=== PATIENT | female | born 1955 | race Caucasian/White ===

== ENCOUNTER → 2020-06-26 16:00 | Outpatient (BNVA) | payer SELFPAY | PROVIDERS: Visit Provider Nurse Practitioner Family | DX: Z20.828 Contact with and (suspected) exposure to other viral communicable diseases (principal); J44.1 Chronic obstructive pulmonary disease with (acute) exacerbation | CPT/HCPCS: 87635 ==

== ENCOUNTER 2021-12-25 08:45 | Emergency (ER) | payer MEDICARE, SELFPAY ==
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
[2021-12-25 08:58] LABS: ABG PCO2 34.3 mmHg (35-45); ABG PH Result 7.43 (7.35-7.45); Alveolar-Arterial Oxygen Gradi 4.8 mmHg (5-10); Arterial Blood Gas Hematocrit 38.3 % (37-47); Base Excess ABG -1.4 mmol/L (-2.0-2.0); Blood Gas Allen Test Pos; Blood Gas Operator Identificat CAK; Blood Gas Sample Site Radial, left; Blood Gas Sample Type Arterial; Carboxyhemoglobin 5.6 %THgb (0.4-20.1); HCO3 ABG 22.5 mmol/L (22-26); Ionized Calcium Level - ABG 1.2 mmol/L (1.1-1.4); Methemoglobin 0.9 % (0.4-1.5); Oxygen Device ROOM AIR; Oxygen Saturation ABG 96.3; PO2 ABG 70.4 mmHg (80.0-100.0); Total Hemoglobin 12.5 g/dL (12-16)
[2021-12-25 09:10] VITALS: BP 150/82; PULSE 78; RESP 20; O2SAT 100; BMI 19.2
[2021-12-25 09:25] LABS: Basophils % 0.6 %; Eosinophils # 0.1 10^3/uL (0.0-0.8); Eosinophils % 1.9 %; Hematocrit 35.6 % (37.0-47.0); Hemoglobin 12.9 g/dL (11.5-15.3); Lymphocytes # 2.3 10^3/uL (0.8-4.8); Lymphocytes % 32.1 %; Mean Corpuscular HGB Conc 36.2 g/dL (30.0-36.0); Mean Corpuscular Hemoglobin 33.9 pg (28.0-34.0); Mean Corpuscular Volume 93.4 fl (81-99); Mean Platelet Volume 9.2 fL (7.4-10.4); Monocytes # 0.4 10^3/uL (0.2-0.9); Monocytes % 5.2 %; Neutrophils # 4.34 10^3/uL (1.8-7.7); Neutrophils % 59.9 %; Nucleated Red Blood Cells % 0 %; Platelet Count 298 10^3/cmm (130-400); Red Blood Count 3.81 10^6/uL (4.1-5.3); Red Cell Distribution Width 13.2 % (12.1-15.1); White Blood Count 7.3 10^3/uL (4.0-10.0)
[2021-12-25 09:47] LABS: Alanine Aminotransferase 16 U/L (0-33); Albumin Level 4.4 g/dL (3.5-5.2); Alkaline Phosphatase 61 IU/L (35-105); Anion Gap 13.6 (5-19); Aspartate Amino Transferase 20 U/L (0-32); Blood Urea Nitrogen 14 mg/dL (8-23); Calcium 9.3 mg/dL (8.5-10.5); Carbon Dioxide 24 mmol/L (22-29); Chloride 101 mmol/L (98-107); Creatinine Clr Calc Pharmacy 53.6297; Globulin 2.9 g/dL (1.3-4.6); Glomerular Filtration Rate 83.7 mL/min (90-130); Glucose 89 mg/dL (65-115); Osmolality Calculated 278 mOsm/kg (285-295); Potassium 4.6 mmol/L (3.5-5.1); Sodium 134 mmol/L (136-145); Total Bilirubin 0.3 mg/dL (0.15-1.2); Total Protein 7.3 g/dL (6.6-8.7)
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
[2021-12-25 10:23] VITALS: PULSE 90; RESP 16; O2SAT 94
[2021-12-25] MEDS: ipratropium-albuterol 3 mL Neb INHALATION (10:23)
[2021-12-25 10:24] VITALS: PULSE 90
[2021-12-25 11:26] VITALS: BP 147/93; PULSE 79; RESP 20; O2SAT 97
--- NOTE | 2021-12-25 11:40 | PC.CHAP ---
Pastoral Care Encounter/Spiritual Assessment Type of Contact [] Declined deicer element winder machine visit [] Patient/Family/Request visit [] Outpatient visit [] Follow-up visit [] Physician referral [] Code/Alert [] Routine visit [] Staff referral [] Actively dying [] Patient sleeping [] Family support [] [] Out of room [] Palliative care [] [] Receiving care in room [] Pre-surgical visit [X] Trauma [] Long length of stay [] ICU visit [] Other:ER Relational/Emotional Strength [x] Patient feels connected with others/family/visitors/staff [] Distress [] Loneliness/isolation [] Abandonment Spirituality of Patient [] Person of Kylie [] Attends Latter Day of their Kylie [x] Believes in Prayer [] Reads Bible or Voodoo materials [] There are Spiritual issues to be addressed Drivability Technician Interventions [] Prayer [] Active listening [] Non-anxious presence [] Spiritual/emotional support [x] Crisis/trauma care [] Spiritual counseling [] Bereavement support [] Provided bereavement packet [] Provided Bible/devotional materials [] Provided toy/stuffed animal, coloring book to patient or family member [] Provided Communion [] Anointing/[place] [] Salvation [] Completed spiritual assessment [] Other: Impact on Illness or Injury [] Angry [] Fearful [] Anxious [] Often cries [] Exhaustion [] Unable to work [] Unable to attend anglican [] Unable to walk/stand [] Unable to read [] Unable to drive [] Unable to eat/drink [] Unable to sleep [] Unable to be with family [] Patient intubated [] Other: Summary Drivability Technician called to ED to be with patient. Worried about her son and as well as her dogs and cats. deicer element winder machine was able to calm patient somewhat and sat with her in ER. Drivability Technician was able to get clothing for patient from [employer] store. Local life science research assistant tryinjg to reach patients children who do not live in area. Time spent with patient 2 hours
== END 2021-12-25 11:27 | disposition home or self-care (01) ==
PROVIDERS: Internal Medicine; Emergency Provider Family Medicine
DX: T59.811A Toxic effect of smoke, accidental (unintentional), initial encounter (principal); J44.9 Chronic obstructive pulmonary disease, unspecified; F17.200 Nicotine dependence, unspecified, uncomplicated
CPT/HCPCS: 71045; 80051; 80053; 82330; 82805; 85025; 94640; 96374; 99284; J2930

== ENCOUNTER 2022-06-07 12:58 | Emergency (ER) | payer MEDICARE, MEDICAID, SELFPAY ==
--- NOTE | 2022-06-07 13:16 | XR_ITS ---
WS: [id number] XR chest 1V portable [id number] REASON FOR EXAM: sob FINDINGS: The thoracic aorta is unremarkable. The heart and mediastinum are within normal limits. There is calcified granulomatous disease bilaterally. Compared to the previous examination of 12/25/2021 there appears to be a nodule projecting just latera l to the left hilum. This lesion is not identified on the previous study. (An unusually short time to develop a pulmonary nodule unless possibly metastatic disease). No other interval change suggesting acute pulmonary parenchymal or pleural abnormality is identified. Mild degenerative spondylosis in the mid and lower thoracic spine. XR/XR chest 1V portable [id number] IMPRESSION: No etiology for shortness of breath identified. Possibly interval development o f a left lung nodule as above. Recommend follow-up PA and lateral chest. If the nodule is again identified the patient will likely need a CT of the chest.
[2022-06-07 13:28] VITALS: BP 158/81; PULSE 80; RESP 18; TEMP 36.7; O2SAT 98
--- NOTE | 2022-06-07 13:38 | ECG_ITS ---
[facility] Test Date: 2022-06-07 Pat Name: Ruby Pelletier Department: Room: Gender: Female Assistant Spa Manager: : 1955 Requested By: Jermaine Valerio Order Number: [id number] Elyse MD: Rosy Monroe M.D. Measurements Intervals [place] Rate: 83 P: 76 CO: 124 QRS: 93 QRSD: 85 T: 70 QT: 341 QTc: 402 Interpretive Statements SINUS RHYTHM BORDERLINE RIGHT AXIS DEVIATION [QRS AXIS > 90] No previous ECG available for comparison Electronically Signed On 06-07-2022 14:52:28 ORTHOPEDIC ASSISTANT by Rosy Monroe M.D. [email or web address] mercy [email or web address]/store/[id number] f
[2022-06-07 13:56] LABS: Basophils % 0.1 %; Hematocrit 38.3 % (37.0-47.0); Hemoglobin 12.6 g/dL (11.5-15.3); Lymphocytes # 0.5 10^3/uL (0.8-4.8); Lymphocytes % 6.1 %; Mean Corpuscular HGB Conc 32.9 g/dL (30.0-36.0); Mean Corpuscular Hemoglobin 33.6 pg (28.0-34.0); Mean Corpuscular Volume 102.1 fl (81-99); Mean Platelet Volume 8.7 fL (7.4-10.4); Monocytes # 0.7 10^3/uL (0.2-0.9); Monocytes % 8.4 %; Neutrophils # 7.07 10^3/uL (1.8-7.7); Nucleated Red Blood Cells % 0 %; Platelet Count 340 10^3/cmm (130-400); Red Blood Count 3.75 10^6/uL (4.1-5.3); White Blood Count 8.3 10^3/uL (4.0-10.0)
[2022-06-07 14:29] LABS: Troponin(5th) Baseline 11 ng/L (0-10)
[2022-06-07 14:36] LABS: Alanine Aminotransferase 25 U/L (0-33); Albumin Level 4.3 g/dL (3.5-5.2); Alkaline Phosphatase 63 U/L (35-105); Anion Gap 14.5 (5-19); Aspartate Amino Transferase 24 U/L (0-32); Blood Urea Nitrogen 15 mg/dL (8-23); Calcium 9.6 mg/dL (8.5-10.5); Carbon Dioxide 28 mmol/L (22-29); Chloride 97 mmol/L (98-107); Creatinine Clr Calc Pharmacy 51.2521; Glucose 107 mg/dL (65-115); NT Pro B Type Natriuretic Pept 166 pg/mL (0-125); Osmolality Calculated 281 mOsm/kg (285-295); Potassium 4.5 mmol/L (3.5-5.1); Sodium 135 mmol/L (136-145); Total Bilirubin 0.2 mg/dL (0.15-1.2); Total Protein 7.3 g/dL (6.6-8.7)
--- NOTE | 2022-06-07 15:16 | ECG_ITS ---
[facility] Test Date: 2022-06-07 Pat Name: Ruby Pelletier Department: Room: Gender: Female Scientific Research Associate: : 1955 Requested By: José Gomez Order Number: [id number] Reading MD: Rosy Monroe M.D. Measurements Intervals [place] Rate: 80 P: 77 OR: 130 QRS: 91 QRSD: 83 T: 79 QT: 340 QTc: 393 Interpretive Statements SINUS RHYTHM BORDERLINE RIGHT AXIS DEVIATION [QRS AXIS > 90] Compared to ECG 06/07/2022 13:35:25 No significant changes Electronically Signed On 06-08-2022 0:14:16 ADMINISTRATIVE SUPPORT CLERK by Rosy Monroe M.D. [id number]
[2022-06-07 16:24] LABS: Troponin 5 2HR 11.32 ng/L (0-10)
[2022-06-07 16:27] LABS: Troponin 5 2HR Delta 0.32 ABS# (0-10)
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
[2022-06-07 17:26] VITALS: PULSE 89; RESP 22; O2SAT 95
[2022-06-07] MEDS: ipratropium-albuterol 3 mL Neb INHALATION (17:26)
[2022-06-07 17:27] VITALS: PULSE 91; RESP 18; O2SAT 95
[2022-06-07 17:37] VITALS: PULSE 91; RESP 18; O2SAT 97
--- NOTE | 2022-06-07 18:36 | PC.NURSE ---
When discharging the patient, she was unhappy with the care that this ER provided. She was unhappy about the wait time, only having one breathing treatment, and was not given a new script for antibiotics even if clinical the patient required none.
== END 2022-06-07 18:35 | disposition home or self-care (01) ==
PROVIDERS: Emergency Medicine; Emergency Provider Family Medicine
DX: J44.1 Chronic obstructive pulmonary disease with (acute) exacerbation (principal)
CPT/HCPCS: 36415; 71045; 80053; 83880; 84484; 85025; 93005; 94640; 99285

== ENCOUNTER 2022-06-09 10:45 | Emergency (ER) | payer MEDICARE, MEDICAID, SELFPAY ==
[2022-06-09 10:58] VITALS: BP 116/72; PULSE 83; RESP 16; TEMP 36.4; O2SAT 97; BMI 16.9
[2022-06-09 11:27] VITALS: BP 145/83; PULSE 90; RESP 16; O2SAT 98
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
[2022-06-09 13:05] VITALS: BP 145/83; PULSE 90; RESP 16; O2SAT 98
== END 2022-06-09 11:51 | disposition home or self-care (01) ==
PROVIDERS: Emergency Provider Emergency Medicine
DX: S29.011A Strain of muscle and tendon of front wall of thorax, initial encounter (principal); J44.9 Chronic obstructive pulmonary disease, unspecified; F17.210 Nicotine dependence, cigarettes, uncomplicated; X58.XXXA Exposure to other specified factors, initial encounter
CPT/HCPCS: 99282

== ENCOUNTER 2022-07-25 16:46 | Emergency (ER) | payer MEDICARE, MEDICAID, SELFPAY ==
[2022-07-25 17:04] VITALS: BP 120/70; PULSE 67; RESP 16; TEMP 36.8; O2SAT 97
--- NOTE | 2022-07-25 17:56 | XRR_ITS ---
PROCEDURE INFORMATION: Exam: XR Chest Exam date and time: 07/25/2022 6:10 PM Age: 67 years old Clinical indication: Other: AMS TECHNIQUE: Imaging protocol: Radiologic exam of the chest. Views: 1 view. COMPARISON: CR XR chest 1V portable [id number] 06/07/2022 2:47 PM FINDINGS: Lungs: There is a 1.5 cm pulmonary nodule left midlung zone more apparent on today's study and concerning for pulmona possible bronchogenic malignancy. Remaining lung lizarraga are clear. Pleural spaces: Unremarkable. No pleural effusion. No pneumothorax. Heart/Mediastinum: Cardiac silhouette is not significantly enlarged. Bones/joints: Unremarkable for age. XR/XR chest 1V portable [id number] IMPRESSION: 1.5 cm pulmonary nodule left midlung zone concerning for possible malignancy. Nonemergent CT chest recommended for further assessment.
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
[2022-07-25 18:07] VITALS: BP 149/67; PULSE 63; RESP 18; O2SAT 100
[2022-07-25 18:15] LABS: Basophils % 0.4 %; Eosinophils # 0.1 10^3/uL (0.0-0.8); Eosinophils % 0.9 %; Hematocrit 37.5 % (37.0-47.0); Lymphocytes # 1.9 10^3/uL (0.8-4.8); Lymphocytes % 28.4 %; Mean Corpuscular Hemoglobin 32.6 pg (28.0-34.0); Mean Corpuscular Volume 101.9 fl (81-99); Mean Platelet Volume 8.8 fL (7.4-10.4); Monocytes # 0.4 10^3/uL (0.2-0.9); Monocytes % 5.8 %; Neutrophils # 4.32 10^3/uL (1.8-7.7); Neutrophils % 64.4 %; Nucleated Red Blood Cells % 0 %; Platelet Count 367 10^3/cmm (130-400); Red Blood Count 3.68 10^6/uL (4.1-5.3); Red Cell Distribution Width 13.8 % (12.1-15.1); White Blood Count 6.7 10^3/uL (4.0-10.0)
--- NOTE | 2022-07-25 18:25 | ED_ITS ---
HPI - General Adult General: Chief complaint: Altered Mental Status Stated complaint: Memory, Weakness, falls Time Seen by Provider: 07/25/22 17:54 Source: patient Mode of arrival: ambulatory Limitations: no limitations History of Present Illness: 67-year-old female who states that over the last 5 days she has been having multiple falls with dizziness states she did hit her head on a fall 4 days ago has had headaches since then she does have some bruising to right forehead. States that she feels very dizzy and unsteady when she tries to ambulate denies any chest pain denies any fevers Associated symptoms: Deny chest pain, dyspnea, nausea, rash or vomiting Review of Systems Const: Denies: fever(s), chills, body aches or change in appetite Eyes: Denies: blurry vision or eye discomfort ENMT: Denies: throat pain or dental pain Card: Denies: chest pain Resp: Denies: dyspnea GI: Denies: abdominal pain, nausea, vomiting or diarrhea : Denies: dysuria Musc: Denies: neck pain or back pain Skin/Breast: Denies: rash Neuro: Reports: dizziness Psych: Denies: depression Jesus/Lymph: Denies: easy bruising All/Imm: Denies: urticaria PFSH ED PFSH: Medical History COPD (chronic obstructive pulmonary disease) Social History Smoking and tobacco status: current every day smoker Physical Exam Const: COMMON NORMALS: patient oriented x3 GENERAL APPEARANCE: ill appearing and frail appearing HENMT: COMMON NORMALS: normocephalic and atraumatic HEAD & SCALP: normocephalic and atraumatic Eye: COMMON NORMALS: Equal, round and reactive pupils present and EOMs intact bilaterally PUPIL: Yes Equal, round and reactive pupils present Neck/C-Spine: COMMON NORMALS: full ROM and supple Chest: COMMONS NORMALS: normal inspection of the chest and normal palpation of entire chest wall Resp: COMMON NORMALS: normal respiratory effort, No retractions, No use of accessory muscles and clear to auscultation bilaterally AUSCULTATION: clear to auscultation bilaterally Cardio: COMMON NORMALS: regular rate, regular rhythm and No murmurs present (Cardio) RATE: regular rate RHYTHM: regular rhythm GI: COMMON NORMALS: Normal to inspection, nondistended, normoactive bowel sounds present, Soft to palpation, non-tender and no masses PALPATION: Yes Soft to palpation Extremity: COMMON NORMALS: normal to inspection and full ROM Neuro: COMMON NORMALS: patient oriented x3, moves all extremities and no focal motor deficits Psych: COMMON NORMALS: mental status grossly normal, Normal thought process present and cooperative THOUGHT PROCESS: Normal thought process present Skin: COMMON NORMALS: no rashes or lesions noted and no wounds GENERAL SKIN EXAM: no rashes or lesions noted Course Vital Signs: Vital signs: Vital Signs Temperature 98.2 F 07/25/22 17:04 Pulse Rate 63 07/25/22 18:07 Respiratory Rate 18 07/25/22 18:07 Blood Pressure 149/67 07/25/22 18:07 Pulse Oximetry 100 07/25/22 18:07 MDM - General Adult Medical Decision Making Patient presents here with multiple falls along with dizziness CT shows multiple brain metastases likely from a primary lung cancer I did strongly recommend transfer as I informed her she has these mets along with edema and some obstruction causing hydrocephalus she states that she does not want any treatment whatsoever she states that she just wants to go home and live the rest of her life at home she does have decision-making capacity she understands the risk and the gravity of her disease she did agree to at least follow-up with oncology but states that at this time she does not want any treatment Lab Data 07/25/22 18:10 07/25/22 18:10 Radiology Impressions Cervical Spine CT 07/25/22 17:56 IMPRESSION: No acute findings. The Chest X-Ray 07/25/22 17:56 IMPRESSION: 1.5 cm pulmonary nodule left midlung zone concerning for possible malignancy. Nonemergent CT chest recommended for further assessment. Head CT 07/25/22 17:56 IMPRESSION: Multiple intracerebral isodense masses with surrounding vasogenic edema likely metastatic in nature involving both cerebral and cerebellar hemispheres resulting in some degree of obstructive hydrocephalus. Follow-up CT or MRI of the brain with contrast recommended for further assessment. ADDENDUM: 07/25/22 1592 THIS REPORT CONTAINS FINDINGS THAT MAY BE CRITICAL TO PATIENT CARE. The findings were verbally communicated via telephone conference with GENESIS JHA at 6:50 PM UNDERWRITING SERVICE REPRESENTATIVE on 07/25/2022. The findings were acknowledged and understood. Laboratory Results WBC 6.7 10^3/uL (4.0-10.0) 07/25/22 18:10 RBC 3.68 10^6/uL (4.1-5.3) L 07/25/22 18:10 Hgb 12.0 g/dL (11.5-15.3) 07/25/22 18:10 Hct 37.5 % (37.0-47.0) 07/25/22 18:10 MCV 101.9 fl (81-99) H 07/25/22 18:10 MCH 32.6 pg (28.0-34.0) 07/25/22 18:10 MCHC 32.0 g/dL (30.0-36.0) 07/25/22 18:10 RDW 13.8 % (12.1-15.1) 07/25/22 18:10 Plt Count 367 10^3/cmm (130-400) 07/25/22 18:10 MPV 8.8 fL (7.4-10.4) 07/25/22 18:10 Neut % (Auto) 64.4 % 07/25/22 18:10 Lymph % (Auto) 28.4 % 07/25/22 18:10 Storey % (Auto) 5.8 % 07/25/22 18:10 Eos % (Auto) 0.9 % 07/25/22 18:10 Baso % (Auto) 0.4 % 07/25/22 18:10 Neut # (Auto) 4.32 10^3/uL (1.8-7.7) 07/25/22 18:10 Lymph # (Auto) 1.9 10^3/uL (0.8-4.8) 07/25/22 18:10 Storey # (Auto) 0.4 10^3/uL (0.2-0.9) 07/25/22 18:10 Eos # (Auto) 0.1 10^3/uL (0.0-0.8) 07/25/22 18:10 Baso # (Auto) 0.0 10^3/uL (0.0-0.1) 07/25/22 18:10 Nucleated RBC % (auto) 0 % 07/25/22 18:10 Nucleated RBCs # 0.0 /100WBC 07/25/22 18:10 PT 13.10 SECONDS (12.1-14.9) 07/25/22 18:10 INR 0.96 (0.8-1.2) 07/25/22 18:10 Sodium 133 mmol/L (136-145) L 07/25/22 18:10 Potassium 3.8 mmol/L (3.5-5.1) 07/25/22 18:10 Chloride 100 mmol/L (98-107) 07/25/22 18:10 Carbon Dioxide 25 mmol/L (22-29) 07/25/22 18:10 Anion Gap 11.8 (5-19) 07/25/22 18:10 BUN 14 mg/dL (8-23) 07/25/22 18:10 Creatinine 0.5 mg/dL (0.5-0.9) 07/25/22 18:10 GFR Calculation 123.1 mL/min (90-130) 07/25/22 18:10 Glucose 113 mg/dL (65-115) 07/25/22 18:10 Calculated Osmolality 277 mOsm/kg (285-295) L 07/25/22 18:10 Calcium 8.7 mg/dL (8.5-10.5) 07/25/22 18:10 Total Bilirubin 0.2 mg/dL (0.15-1.2) 07/25/22 18:10 AST 21 U/L (0-32) 07/25/22 18:10 ALT 13 U/L (0-33) 07/25/22 18:10 Alkaline Phosphatase 81 U/L (35-105) 07/25/22 18:10 Total Protein 7.1 g/dL (6.6-8.7) 07/25/22 18:10 Albumin 4.1 g/dL (3.5-5.2) 07/25/22 18:10 Globulin 3.0 g/dL (1.3-4.6) 07/25/22 18:10 Discharge Plan Discharge Patient Disposition: Left Against Medical Advice Clinical Impression: Brain metastasis Condition: Stable Prescriptions: No Action levofloxacin 750 mg tablet 750 mg PO DAILY 7 Days Qty: 7 0RF prednisone 20 mg tablet 60 mg PO DAILY 5 Days Qty: 15 0RF albuterol sulfate 90 mcg/actuation HFA aerosol inhaler 2 inh inhalation Q4H PRN (Reason: shortness of breath or wheezing) Qty: 6.7 0RF albuterol sulfate 2.5 mg /3 mL (0.083 %) Solution For Nebulization 2.5 mg INHALATION Q4H PRN (Reason: Shortness Of Breath) cetirizine [Zyrtec] 10 mg Tablet 10 mg PO DAILY PRN (Reason: Allergy Symptoms) ibuprofen 200 mg Tablet 400 - 600 mg PO Q6H PRN (Reason: Pain) Primatene Mist 0.125 mg/actuation Hfa Aerosol Inhaler 1 puff INHALATION Q6H PRN (Reason: Shortness Of Breath) Rx Instructions: may repeat once after 1 minute; do not exceed 8 inhalations per 24 hrs Medrol (Sixto) 4 mg tablets,dose pack See Rx Instructions .ROUTE .COMPLEX Qty: 21 0RF Rx Instructions: orally per package directions albuterol sulfate 90 mcg/actuation HFA aerosol inhaler 2 inh INHALATION Q4H PRN (Reason: shortness of breath or wheezing) Qty: 18 0RF ipratropium-albuterol 0.5 mg-3 mg(2.5 mg base)/3 mL solution for nebulization 3 ml inhalation Q4H PRN (Reason: shortness of breath or wheezing) Qty: 180 0RF Rx Instructions: until breathing returns to target peak flow/parameters Coding Level of Care Code ED Corporate Librarian for Ronnieg Fwd Exam Comprehensive
[2022-07-25 18:28] LABS: INR 0.96 (0.8-1.2)
[2022-07-25] MEDS: sodium chloride 0.9% 1,000 ML 999 ML IV (18:36)
[2022-07-25] MEDS: ondansetron 2 mg/ML SDV 2 mL 4 MG IVP (18:38)
[2022-07-25 18:39] LABS: Alanine Aminotransferase 13 U/L (0-33); Albumin Level 4.1 g/dL (3.5-5.2); Alkaline Phosphatase 81 U/L (35-105); Anion Gap 11.8 (5-19); Aspartate Amino Transferase 21 U/L (0-32); Blood Urea Nitrogen 14 mg/dL (8-23); Calcium 8.7 mg/dL (8.5-10.5); Carbon Dioxide 25 mmol/L (22-29); Chloride 100 mmol/L (98-107); Glomerular Filtration Rate 123.1 mL/min (90-130); Glucose 113 mg/dL (65-115); Osmolality Calculated 277 mOsm/kg (285-295); Potassium 3.8 mmol/L (3.5-5.1); Sodium 133 mmol/L (136-145); Total Bilirubin 0.2 mg/dL (0.15-1.2); Total Protein 7.1 g/dL (6.6-8.7)
--- NOTE | 2022-07-25 19:20 | PC.NURSE ---
Report from JUSTINE Turcios. Dr. Caballero at bedside to discuss pt diagnosis. Pt requested to leave AMA rather than be transferred for care.
--- NOTE | 2022-07-26 12:25 | DCPLANNER ---
Addendum entered by Zakia Garcia 08/11/22 14:06: medicine and health service manager called to confirm if an appointment had been scheduled for patient with Dr. Mijares. medicine and health service manager was told that patient has gone on hospice, no appointment scheduled. Original Note: medicine and health service manager had message to [facility], Dr. Mijares. medicine and health service manager called Norma, agency service coordinator, at the cancer treatment center. medicine and health service manager gave clinic patients information, the information will be printed and reviewed. Clinic will call patient with appointment information.
== END 2022-07-25 19:19 | disposition left against medical advice (07) ==
PROVIDERS: Emergency Provider Emergency Medicine
DX: C79.31 Secondary malignant neoplasm of brain (principal); C34.90 Malignant neoplasm of unspecified part of unspecified bronchus or lung; Z53.21 Procedure and treatment not carried out due to patient leaving prior to being seen by health care provider; G91.1 Obstructive hydrocephalus; J44.9 Chronic obstructive pulmonary disease, unspecified; F17.210 Nicotine dependence, cigarettes, uncomplicated
CPT/HCPCS: 70450; 71045; 72125; 80053; 85025; 85610; 96361; 96374; 99285; J2405; J7030